=== PATIENT | female | born 1975 | race Caucasian/White ===

== ENCOUNTER → 2021-05-05 | Outpatient (CLI) | payer BC, OTHER ==
[2021-05-05 15:03] LABS: CREATINE KINASE MB 1.5 NG/ML (<6.6)
== END ==
LOC: LAB 14:12
PROVIDERS: ATTEND Nurse Practitioner Family
DX: R06.09 Other forms of dyspnea (principal)
CPT/HCPCS: 36415; 82553; 83874; 84484